=== PATIENT | male | born 1970 | race African-American/Black ===

== ENCOUNTER 2022-07-23 08:44 | Emergency (ER) | payer MEDICAID ==
[~2022-07-23] VITALS: Ht 172.7 cm; Wt 102.3 kg
[2022-07-23 12:57] LABS: COVID AG,FIA SOURCE NASAL SWAB
[2022-07-23 13:40] VITALS: BP 166/98
== END 2022-07-23 14:10 | disposition home or self-care (01) ==
LOC: EMS 08:50
DX: J06.9 Acute upper respiratory infection, unspecified (principal); Z98.890 Other specified postprocedural states; Z20.822 Contact with and (suspected) exposure to COVID-19
CPT/HCPCS: 71046; 99284

== ENCOUNTER 2024-04-22 12:05 | Emergency (ER) | payer BC, OTHER ==
[~2024-04-22] VITALS: Ht 170.2 cm; Wt 90.9 kg
[~2024-04-22 12:05] MED LIST: AMLO-257 PO; ASPI-1444 PO; ATOR40TA71 PO; HYDR25TA84 PO; METO25XL PO; TICA90TA PO
[2024-04-22] MEDS: TICAGRELOR 90 MG TABLET PO ONE (14:25)
[2024-04-22 14:51] VITALS: BP 124/77; PULSE 72; RESP 16; TEMP 98.4
== END 2024-04-22 14:54 | disposition home or self-care (01) ==
LOC: EMS 12:05
DX: I21.3 ST elevation (STEMI) myocardial infarction of unspecified site (principal); Z76.0 Encounter for issue of repeat prescription; I10 Essential (primary) hypertension
CPT/HCPCS: 99283